=== PATIENT | female | born 1985 | race Asian ===

== ENCOUNTER → 2023-01-01 | Outpatient (CLI) | payer OTHER ==
[2023-01-02 07:07] LABS: RUBELLA AB IGG-REFLAB 3.17 index (Immune >0.99)
== END | disposition home or self-care (01) ==
LOC: LABMN 14:03
PROVIDERS: ATTEND Internal Medicine
DX: Z02.1 Encounter for pre-employment examination (principal)
CPT/HCPCS: 86706; 86735; 86762; 86765; 86787

== ENCOUNTER 2023-06-06 14:07 | Emergency (ER) | payer OTHER ==
[~2023-06-06] VITALS: Ht 152.4 cm; Wt 90.9 kg
[2023-06-06 14:14] VITALS: BP 123/91; PULSE 101; RESP 18; TEMP 97.9
[2023-06-06 16:00] LABS: ANION GAP 10 mmol/L (8-16); CALCIUM, TOTAL 9.9 mg/dL (8.8-10.5); CARBON DIOXIDE 28 mmol/L (22-29); CHLORIDE 100 mmol/L (98-107); CREATININE 0.65 mg/dL (0.60-1.30); GLOMERULAR FILTR. RATE CALC > 60 mL/min (>60); GLUCOSE,RANDOM 88 mg/dL (70-110); POTASSIUM 4.1 mmol/L (3.5-5.1); SODIUM SERUM 138 mmol/L (136-145); UREA NITROGEN, BLOOD 11 mg/dL (7-18)
[2023-06-06 16:06] LABS: ALANINE AMINOTRANSFERASE 34 U/L (12-78); ALBUMIN 3.9 g/dL (3.4-5.0); ALKALINE PHOSPHATASE 128 U/L (46-116); ASPARTATE AMINOTRANSFERASE 20 U/L (15-37); BILIRUBIN,TOTAL 0.2 mg/dL (0.1-1.0); TOTAL PROTEIN, SERUM 8.5 g/dL (6.4-8.2)
[2023-06-10 03:06] LABS: HEPATITIS C AB (EIA) Non Reactive (Non Reactive)
[2023-06-10 08:06] LABS: HEPATITIS A ANTIBODY IGM Negative (Negative); HEPATITIS B CORE IGM Negative (Negative)
== END 2023-06-06 18:35 | disposition home or self-care (01) ==
LOC: EMS 14:07
DX: S61.432A Puncture wound without foreign body of left hand, initial encounter (principal); Z90.49 Acquired absence of other specified parts of digestive tract; W46.0XXA Contact with hypodermic needle, initial encounter; Y93.9 Activity, unspecified; Y92.89 Other specified places as the place of occurrence of the external cause; Y99.0 Civilian activity done for income or pay
CPT/HCPCS: 80053; 80074; 86706; 99283